=== PATIENT | male | born 1985 | race Hispanic/Latino ===

== ENCOUNTER 2018-04-23 20:17 | Emergency (ER) | payer OTHER ==
[2018-04-23] MEDS ORDERED: CEPHALEXIN 500 MG CAPSULE ONE (21:14)
[2018-04-23] MEDS ORDERED: DOXYCYCLINE HYCLATE 100 MG TABLET PO ONE (21:15)
== END 2018-04-23 21:27 | disposition home or self-care (01) ==
LOC: EDH 20:17
DX: L03.115 Cellulitis of right lower limb (principal)